=== PATIENT | male | born 1980 | race Caucasian/White ===

== ENCOUNTER 2023-10-19 13:23 | Emergency (ER) | payer OTHER ==
[~2023-10-19] VITALS: Ht 188 cm; Wt 76.7 kg
[2023-10-19 14:04] VITALS: BP 116/84; TEMP 98.1
[2023-10-19 15:25] VITALS: O2SAT 97
== END 2023-10-19 15:26 | disposition home or self-care (01) ==
LOC: ER 13:52
DX: F15.129 Other stimulant abuse with intoxication, unspecified (principal); R20.2 Paresthesia of skin; R00.2 Palpitations; R42 Dizziness and giddiness